=== PATIENT | female | born 1955 | race Caucasian/White ===

== ENCOUNTER → 2017-03-25 | Outpatient (CLI) | payer OTHER ==
--- NOTE | 2017-03-25 23:19 | MR ---
EXAMINATION TYPE: MR lumbar spine wo/w con DATE OF EXAM: 03/25/2017 COMPARISON: NONE HISTORY: 61-year-old female with left hip pain x8 months Technique: Multiplanar, multisequence images of the lumbar spine were obtained before and after admin istration of 20 mL intravenous MultiHance gadolinium contrast. FINDINGS: Vertebral body heights are preserved. Scattered Modic type II fatty endplate change particularly anteriorly from L2 through L5 levels and s ome Modic type III sclerotic changes anteriorly at L5-S1. Otherwise, no suspicious bone marrow replac ement. Conus medullaris is normal. There is facet arthropathy mid to lower lumbar spine with grade 1 retrolisthesis at L4-L5. The intervertebral discs are degenerated, desiccated, narrowed, and diffusely bulging. Severe narrowi ng at L5-S1 and moderate at L4-L5 with disc vacuum. At T12-L1, no spinal canal or foraminal stenosis. At L1-L2, no spinal canal or neuroforaminal stenosis. At L2-L3, minimal diffuse disc bulge without spinal canal or neuroforaminal stenosis. At L3-L4, mild diffuse disc bulge with small posterior annular fissure. No significant spinal canal o r neuroforaminal stenosis. L4-L5, there is facet arthropathy with ligamentum flavum thickening and diffuse disc bulge changes james spected to contact and possibly impinges the traversing left L5 nerve root. There is mild bilateral n euroforaminal stenosis without significant spinal canal stenosis. At L5-S1, facet arthropathy with a bulging disc. Disc material closely approaches and may contact the traversing S1 nerve roots. No significant spinal canal or neuroforaminal stenosis. No abnormal enhancement within the spinal canal. Ectasia of the infrarenal abdominal aorta measuring up to 2.6 cm. No prevertebral or paravertebral so ft tissue abnormality seen. IMPRESSION: 1. Degenerative disc disease, most advanced at L5-S1 and then at L4-L5. Additional facet arthropathy and ligamentum flavum thickening in the lower lumbar spine. 2. Trace degenerative grade 1 retrolisthesis at L4-L5. 3. At L4-L5, the traversing left L5 nerve root may be impinged by the degenerative changes and bulgin g disc. 4. Disc material closely approaches and may contact the traversing S1 nerve roots at L5-S1.
== END | disposition home or self-care (01) ==
LOC: RADMRIMAIN 19:21
PROVIDERS: ATTEND Family Medicine
DX: M43.16 Spondylolisthesis, lumbar region (principal); M51.16 Intervertebral disc disorders with radiculopathy, lumbar region; M51.17 Intervertebral disc disorders with radiculopathy, lumbosacral region; M24.28 Disorder of ligament, vertebrae; M46.86 Other specified inflammatory spondylopathies, lumbar region
CPT/HCPCS: 72158; A9577

== ENCOUNTER → 2017-04-16 | Outpatient (CLI) | payer OTHER ==
--- NOTE | 2017-04-16 13:11 | US ---
EXAMINATION TYPE: US duplex aorta DATE OF EXAM: 04/16/2017 COMPARISON: MRI lumbar spine March 25, 20172016 CLINICAL HISTORY: I77.811 Abdominal Aortic Ectasia' 2.6cm infrarenal aortic ectasia noted on MRI; Smo ker since teenager EXAM MEASUREMENTS: Abdominal Aorta: Proximal: 2.8cm A/P Mid: 2.3cm A/P Distal: 2.6cm Transverse Bifurcation: 1.4cm A/P Right JOSE G, 1.1cm A/P Left JOSE G Intimal thickening is noted especially at distal aorta and into JOSE G. Prominence of aorta is confirmed but no greater than 3 cm aneurysmal dilatation is seen IMPRESSION: No greater than 3 cm aneurysmal change to the abdominal aorta.
== END | disposition home or self-care (01) ==
LOC: RADUSWWP 09:55
PROVIDERS: ATTEND Family Medicine
DX: I77.811 Abdominal aortic ectasia (principal)
CPT/HCPCS: 93979

== ENCOUNTER → 2017-04-22 | Outpatient (CLI) | payer OTHER ==
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
--- NOTE | 2017-04-23 14:25 | MM ---
Reason for exam: screening (asymptomatic). Last mammogram was performed 1 year and 3 months ago. History: Patient is postmenopausal, has history of endometrial cancer at age 37, and is nulliparous. Benign stereotactic core biopsy of the right breast, May 07, 2001. Core biopsy of the right breast. Physical Findings: A clinical breast exam by your physician is recommended on an annual basis and results should be correlated with mammographic findings. MG Screening Mammo w CAD Bilateral CC and MLO view(s) were taken. Prior study comparison: January 16, 2016, bilateral MG screening mammo w CAD. December 27, 2014, bilateral MG screening mammo w CAD. There are scattered fibroglandular densities. Stable benign calcifications. There is no discrete abnormality. No significant changes when compared with prior studies. ASSESSMENT: Benign, BI-RAD 2 RECOMMENDATION: Routine screening mammogram of both breasts in 1 year.
== END ==
LOC: WWCWWP 14:52
PROVIDERS: ATTEND Obstetrics & Gynecology
DX: Z12.31 Encounter for screening mammogram for malignant neoplasm of breast (principal)

== ENCOUNTER → 2017-06-03 | Outpatient (CLI) | payer OTHER ==
--- NOTE | 2017-06-04 13:36 | CT ---
EXAMINATION TYPE: CT chest wo con DATE OF EXAM: 06/03/2017 COMPARISON: Outside CT 05/13/2017 HISTORY: Abnormal CT at [facility] per patient. Pulmonary nodule at base of lung. CT DLP: 732.00 mGycm. Automated Exposure Control for Dose Reduction was Utilized. TECHNIQUE: CT scan of the thorax is performed without IV contrast. FINDINGS: LUNGS: The lungs are remarkable for a subpleural nodule and axial image 20 measuring approximately 5 mm immediately adjacent 2 mm nodule. The previously described nodule in the right middle lobe is not seen definitively. There is no pleural effusion. MEDIASTINUM: Lack of IV contrast is noted to limit evaluation for mediastinal and especially hilar ad enopathy. There are no definitive greater than 1 cm hilar or mediastinal lymph nodes. No cardiomega ly or significant pericardial effusion is seen, minimal pericardial fluid noted. OTHER: No additional significant abnormality is seen. Patient is post cholecystectomy. IMPRESSION: Nonspecific subcentimeter pulmonary nodule, repeat CT to assess for stability in 6-12 mon ths.
== END | disposition home or self-care (01) ==
LOC: RADCTMAIN 18:37
PROVIDERS: ATTEND Family Medicine
DX: R91.1 Solitary pulmonary nodule (principal)
CPT/HCPCS: 71250

== ENCOUNTER → 2018-05-26 | Outpatient (CLI) | payer OTHER ==
[2018-05-26 13:51] VITALS: BP 115/53; PULSE 89; TEMP 98.3; BMI 33.0
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
--- NOTE | 2018-05-28 09:19 | MM ---
Reason for exam: screening (asymptomatic). Last mammogram was performed 1 year and 1 month ago. History: Patient is postmenopausal, has history of endometrial cancer at age 37, and is nulliparous. Benign stereotactic core biopsy of the right breast, May 07, 2001. Core biopsy of the right breast. Physical Findings: A clinical breast exam by your physician is recommended on an annual basis and results should be correlated with mammographic findings. MG Screening Mammo w CAD Bilateral CC and MLO view(s) were taken. Prior study comparison: April 22, 2017, bilateral MG screening mammo w CAD. January 16, 2016, bilateral MG screening mammo w CAD. There is chronic nodularity in the right breast. No significant changes when compared with prior studies. ASSESSMENT: Benign, BI-RAD 2 RECOMMENDATION: Routine screening mammogram of both breasts in 1 year.
== END | disposition home or self-care (01) ==
LOC: WWCWWP 13:12
PROVIDERS: ATTEND Obstetrics & Gynecology
DX: Z12.31 Encounter for screening mammogram for malignant neoplasm of breast (principal)
CPT/HCPCS: 77067

== ENCOUNTER → 2018-06-16 | Outpatient (CLI) | payer OTHER ==
--- NOTE | 2018-06-17 16:25 | BD ---
EXAMINATION TYPE: Axial Bone Density DATE OF EXAM: 06/16/2018 COMPARISON: NONE CLINICAL HISTORY: Height: 65.5 IN Weight: 205 LBS FRAX RISK QUESTIONS: Secondary Osteoporosis: 3. Menopause before 45: YES AGE 37 Current Tobacco Use: YES RISK FACTORS HISTORY OF: Active: NO Diet low in dairy products/other sources of calcium: YES Postmenopausal woman: AGE 37 MEDICATIONS: Additional Medications: VIT D, KEFLEX, ASPIRIN, BLOOD PRESSURE MEDS, WATER PILL, CHOLESTEROL MED, NOR CO, Additional History: CERVICAL CANCER WITH RADIATION AGE 37 EXAM MEASUREMENTS: Bone mineral densitometry was performed using the [employer] System. Bone mineral density as measured about the Lumbar spine is: ----- L1-L4(G/cm2): 0.967 T Score Values are as follows: ----- L2: -2.0 ----- L3: -1.7 ----- L4: -0.6 ----- L1-L4: -1.8 Bone mineral density BASELINE Bone mineral density about the R hip (g/cm2): 0.664 Bone mineral density about the L hip (g/cm2): 0.652 T Score values are as follows: -----R Neck: -2.7 -----L Neck: -2.8 -----R Total: -2.8 -----L Total: -2.4 Bone mineral density BASELINE IMPRESSION: Osteoporosis (T Score less than -2.5). There is increased fracture risk and therapy is usually indicated based on age. Re-Screen 1-2 years. NOTE: T-SCORE=SD OF THE YOUNG ADULT MEAN.
== END ==
LOC: RADBDWWP 16:13
PROVIDERS: ATTEND Obstetrics & Gynecology
DX: M81.0 Age-related osteoporosis without current pathological fracture (principal)
CPT/HCPCS: 77080

== ENCOUNTER → 2019-06-09 | Outpatient (CLI) | payer OTHER ==
[2019-06-09 10:39] VITALS: BP 95/60; PULSE 114; RESP 18; TEMP 98.7; BMI 35.2
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
--- NOTE | 2019-06-10 13:45 | MM ---
Reason for exam: screening (asymptomatic). Last mammogram was performed 1 year ago. History: Patient is postmenopausal, has history of endometrial cancer at age 37, and is nulliparous. Benign stereotactic core biopsy of the right breast, May 07, 2001. Core biopsy of the right breast. Physical Findings: A clinical breast exam by your physician is recommended on an annual basis and results should be correlated with mammographic findings. MG Screening Mammo w CAD Bilateral CC and MLO view(s) were taken. Prior study comparison: May 26, 2018, bilateral MG screening mammo w CAD. April 22, 2017, bilateral MG screening mammo w CAD. There are scattered fibroglandular densities. Stable benign calcifications. There is no discrete abnormality. No significant changes when compared with prior studies. ASSESSMENT: Benign, BI-RAD 2 RECOMMENDATION: Routine screening mammogram of both breasts in 1 year.
== END | disposition home or self-care (01) ==
LOC: WWCWWP 10:18
PROVIDERS: ATTEND Obstetrics & Gynecology
DX: Z12.31 Encounter for screening mammogram for malignant neoplasm of breast (principal)
CPT/HCPCS: 77067

== ENCOUNTER → 2020-08-22 | Outpatient (CLI) | payer OTHER ==
[2020-08-22 10:47] VITALS: BP 114/77; PULSE 79; RESP 20; TEMP 98
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
--- NOTE | 2020-08-23 09:23 | MM ---
Reason for exam: screening (asymptomatic). Last mammogram was performed 1 year and 2 months ago. History: Patient is postmenopausal, has history of endometrial cancer at age 37, and is nulliparous. Benign stereotactic core biopsy of the right breast, May 07, 2001. Core biopsy of the right breast. Physical Findings: A clinical breast exam by your physician is recommended on an annual basis and results should be correlated with mammographic findings. MG Screening Mammo w CAD Bilateral CC and MLO view(s) were taken. Prior study comparison: June 09, 2019, bilateral MG screening mammo w CAD. May 26, 2018, bilateral MG screening mammo w CAD. There are scattered fibroglandular densities. Stable benign calcifications. There is no discrete abnormality. No significant changes when compared with prior studies. ASSESSMENT: Benign, BI-RAD 2 RECOMMENDATION: Routine screening mammogram of both breasts in 1 year.
== END | disposition home or self-care (01) ==
LOC: WWCWWP 10:32
PROVIDERS: ATTEND Obstetrics & Gynecology
DX: Z12.31 Encounter for screening mammogram for malignant neoplasm of breast (principal)
CPT/HCPCS: 77067

== ENCOUNTER → 2021-10-23 | Outpatient (CLI) | payer OTHER ==
[2021-10-23 10:53] VITALS: BP 103/69; PULSE 82; RESP 18; TEMP 98.8
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
--- NOTE | 2021-10-24 14:15 | MM ---
Reason for exam: screening (asymptomatic). Last mammogram was performed 1 year and 2 months ago. History: Patient is postmenopausal, has history of endometrial cancer at age 37, and is nulliparous. Benign stereotactic core biopsy of the right breast, May 07, 2001. Core biopsy of the right breast. Physical Findings: A clinical breast exam by your physician is recommended on an annual basis and results should be correlated with mammographic findings. MG Screening Mammo w CAD Bilateral CC and MLO view(s) were taken. Prior study comparison: August 22, 2020, bilateral MG screening mammo w CAD. June 09, 2019, bilateral MG screening mammo w CAD. There are scattered fibroglandular densities. There are benign appearing round calcifications in the right breast. Previous mammotome biopsy in the right breast. There is chronic nodularity in the right breast and left axilla. ASSESSMENT: Benign, BI-RAD 2 RECOMMENDATION: Routine screening mammogram of both breasts in 1 year.
== END ==
LOC: WWCWWP 10:27
PROVIDERS: ATTEND Obstetrics & Gynecology
DX: Z12.31 Encounter for screening mammogram for malignant neoplasm of breast (principal); N36.41 Hypermobility of urethra; E78.5 Hyperlipidemia, unspecified; F32.A Depression, unspecified; Z87.310 Personal history of (healed) osteoporosis fracture; Z79.899 Other long term (current) drug therapy; Z86.19 Personal history of other infectious and parasitic diseases; Z87.891 Personal history of nicotine dependence; Z88.1 Allergy status to other antibiotic agents; Z88.2 Allergy status to sulfonamides; Z88.8 Allergy status to other drugs, medicaments and biological substances
CPT/HCPCS: 77067

== ENCOUNTER → 2021-11-22 | Outpatient (CLI) | payer OTHER ==
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
== END | disposition home or self-care (01) ==
LOC: RADBDWWP 12:34
PROVIDERS: ATTEND Obstetrics & Gynecology
DX: M85.88 Other specified disorders of bone density and structure, other site (principal); Z78.0 Asymptomatic menopausal state
CPT/HCPCS: 77080

== ENCOUNTER 2021-12-10 21:12 | Emergency (ER) | payer OTHER ==
[2021-12-11] MEDS ORDERED: ACETAMINOPHEN TAB 500 MG TAB PO STA (01:19)
[2021-12-11] MEDS ORDERED: IBUPROFEN 600 MG TAB PO STA (01:19)
[2021-12-11] MEDS ORDERED: SODIUM CHLORIDE 0.9% 1,000 ML IV STA (01:19)
[2021-12-11] MEDS ORDERED: diphenhydrAMINE 50 MG/ML 1 ML VIAL IVP STA (01:46)
[2021-12-11] MEDS ORDERED: hydrOXYzine HCL 25 MG TAB PO STA (01:46)
[2021-12-11] MEDS ORDERED: FAMOTIDINE 20 MG/2 ML VIAL IV STA (01:46)
[2021-12-11] MEDS ORDERED: methylPREDNISolone SOD SUCCI 125 MG/2 ML VIAL IV STA (01:46)
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
--- NOTE | 2021-12-11 02:47 | XR ---
EXAMINATION TYPE: XR pelvis AP view DATE OF EXAM: 12/11/2021 COMPARISON: NONE HISTORY: Postop fever TECHNIQUE: Single view FINDINGS: The pelvic ring is intact. There is skin morena over the left and right inguinal region. T here is right iliac artery stent. The proximal femurs are intact. No fracture seen. There is apparent lumbar spine surgery with laminectomy at L4-5. IMPRESSION: No acute abnormality of the pelvis.
--- NOTE | 2021-12-11 02:48 | XR ---
EXAMINATION TYPE: XR chest 1V DATE OF EXAM: 12/11/2021 COMPARISON: NONE HISTORY: Postop fever TECHNIQUE: Single view FINDINGS: There is no heart failure nor confluent pneumonic infiltrate. Costophrenic angles are clear . There are no hilar masses. Bony thorax is intact. IMPRESSION: No active cardiopulmonary disease.
[2021-12-11 03:50] LABS: Appearance,Urine Turbid (Clear); Bacteria,Urine Occasional /hpf; Bilirubin,Urine Negative (Negative); Blood,Urine Negative (Negative); Color,Urine Yellow; Glucose,Urine (UA) Negative (Negative); Ketones,Urine Trace (Negative); Leukocyte Esterase,Urine Negative (Negative); Mucus,Urine Many /hpf; Nitrite,Urine Negative (Negative); PH, Urine 5.5 (5.0-8.0); Protein,Urine Trace (Negative); RBC,Urine 1 /hpf (0-5); Specific Gravity,Urine 1.029 (1.001-1.035); Squamous Epithelial Cell,Urine 6 /hpf (0-4); WBC,Urine 2 /hpf (0-5)
[2021-12-11 04:56] LABS: Basophils % (A) 0 %; Eosinophils # (A) 0.1 k/uL (0-0.7); Eosinophils % (A) 1 %; HCT 38.9 % (34.0-46.0); HGB 12.7 gm/dL (11.4-16.0); Lymphocytes % (A) 23 %; MCH 31.8 pg (25.0-35.0); MCHC 32.5 g/dL (31.0-37.0); MCV 97.8 fL (80.0-100.0); Mean Platelet Volume 8.7; Monocytes # (A) 0.5 k/uL (0-1.0); Monocytes % (A) 6 %; Neutrophils # (A) 5.9 k/uL (1.3-7.7); Neutrophils % (A) 67 %; Platelet Count 338 k/uL (150-450); RBC 3.98 m/uL (3.80-5.40); RDW 14.6 % (11.5-15.5); WBC 8.7 k/uL (3.8-10.6)
[2021-12-11 05:04] VITALS: RESP 18
[2021-12-11 05:18] LABS: Albumin 3.4 g/dL (3.5-5.0); C Reactive Protein 2.8 mg/dL (<1.0); Calcium 8.9 mg/dL (8.4-10.2); Magnesium 2.2 mg/dL (1.6-2.3); Phosphorus 3.9 mg/dL (2.5-4.5); Potassium 4.3 mmol/L (3.5-5.1); Total Bilirubin 0.7 mg/dL (0.2-1.3); Total Protein 6.4 g/dL (6.3-8.2)
[2021-12-11 05:22] LABS: INR 0.9 (<1.2); Prothrombin Time 10.1 sec (9.0-12.0)
[2021-12-11] MEDS ORDERED: CLINDAMYCIN 150 MG CAP PO STA (05:47)
[2021-12-11] MEDS ORDERED: cefTRIAXone IN SWFI 1,000 MG/10 ML SYRINGE IVP STA (05:47)
[2021-12-11 06:10] VITALS: BP 144/87; PULSE 87; TEMP 98.9
== END 2021-12-11 06:16 | disposition home or self-care (01) ==
LOC: EC 21:12
DX: L50.8 Other urticaria (principal); R50.82 Postprocedural fever; E78.5 Hyperlipidemia, unspecified; M81.0 Age-related osteoporosis without current pathological fracture; F32.A Depression, unspecified; Z90.49 Acquired absence of other specified parts of digestive tract; Z79.82 Long term (current) use of aspirin; Z88.1 Allergy status to other antibiotic agents; Z88.2 Allergy status to sulfonamides; Z85.41 Personal history of malignant neoplasm of cervix uteri; Z87.891 Personal history of nicotine dependence
CPT/HCPCS: 99283; 96374; 96375 ×3; 96361; 36415; 93005; 80053; 83605; 83735; 84100; 84484; 85025; 85610; 85730; 86140; 81001; 87040; 72170; 71045; J1200; J2930; J0696

== ENCOUNTER 2022-03-23 11:02 | Inpatient (IN) | payer OTHER ==
[2022-03-23] MEDS ORDERED: SODIUM CHLORIDE 0.9% 1,000 ML IV STA (11:35)
[2022-03-23] MEDS ORDERED: fentaNYL (PF) 50 MCG/ML 2 ML AMP IVP STA (11:35)
[2022-03-23] MEDS ORDERED: ONDANSETRON 4 MG/2 ML VIAL IVP STA (11:36)
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
[2022-03-23 11:43] LABS: Glucose,Whole Blood 196 mg/dL (70-110)
[2022-03-23] MEDS ORDERED: ASPIRIN 81 MG PO STA (11:51)
[2022-03-23] MEDS ORDERED: HEPARIN SODIUM 1,000 UN/ML (10ML VL) IV ONE (11:51)
[2022-03-23] MEDS ORDERED: HEPARIN SODIUM 1,000 UN/ML (10ML VL) IV PRN (11:51)
[2022-03-23 12:01] LABS: Albumin 3.5 g/dL (3.5-5.0); Calcium 8.2 mg/dL (8.4-10.2); Magnesium 2.2 mg/dL (1.6-2.3); Total Bilirubin 1.4 mg/dL (0.2-1.3); Total Protein 6.8 g/dL (6.3-8.2)
[2022-03-23 12:02] LABS: Basophils # (A) 0.1 k/uL (0-0.2); Basophils % (A) 1 %; Eosinophils % (A) 0 %; HCT 43.9 % (34.0-46.0); HGB 13.8 gm/dL (11.4-16.0); Hypochromasia Moderate; Lymphocytes # (A) 0.8 k/uL (1.0-4.8); Lymphocytes % (A) 4 %; MCH 30.5 pg (25.0-35.0); MCHC 31.3 g/dL (31.0-37.0); MCV 97.3 fL (80.0-100.0); Mean Platelet Volume 10.1; Monocytes % (A) 5 %; Neutrophils # (A) 18.6 k/uL (1.3-7.7); Neutrophils % (A) 89 %; Platelet Count 223 k/uL (150-450); RBC 4.51 m/uL (3.80-5.40); WBC 20.9 k/uL (3.8-10.6)
[2022-03-23 12:06] LABS: INR 1.2 (<1.2); Partial Thromboplastin Time 26.5 sec (22.0-30.0); Prothrombin Time 12.4 sec (9.0-12.0)
[2022-03-23 12:16] LABS: Ionized Calcium 4.1 mg/dL (4.5-5.3)
[2022-03-23] MEDS: HEPARIN SOD,PORK IN 0.45% NACL 25,000 UNIT in 0.45% NACL 1 250ML.BAG IV SCH ×2 (12:29→17:52)
[2022-03-23] MEDS ORDERED: VANCOMYCIN 1,500 MG in SODIUM CHLORIDE 0.9% 250 ML IVPB STA (12:44)
[2022-03-23] MEDS ORDERED: NALOXONE 0.4 MG/ML 1 ML VIAL IV PRN (12:45)
[2022-03-23] MEDS ORDERED: SODIUM CHLORIDE 0.9% 1,000 ML IV SCH (12:45)
[2022-03-23] MEDS ORDERED: VANCOMYCIN IV PER PHARMACY 1 EACH MISC MISCELLANE PRN (12:54)
--- NOTE | 2022-03-23 12:57 | CT ---
EXAMINATION TYPE: CT angio tho/abd W Run Off DATE OF EXAM: 03/23/2022 COMPARISON: 05/13/2017 HISTORY: Left leg discoloration. Recent stent surgery in November 2021. CT DLP: 3868.2 mGycm CONTRAST: CTA thoracic and abdominal aorta with 3-D reconstruction is performed and without and with IV Contras t, patient injected with 100ml mL of Isovue 370. Contrast CTA of the abdominal aorta with runoff of the lower extremity arterial system was performed from the lung bases through the ankles and feet. 3-D reconstruction imaging obtained at a separate wo rkstation. Thoracic aorta: Normal caliber. No dissection. No aneurysm. Heart and mediastinal structures are with in normal limits. Mild right basilar atelectasis. ABDOMINAL AORTA: 3.1 cm infrarenal abdominal aortic aneurysm with mural thrombus. Diminutive right re nal artery. Remaining branch vessels are within normal limits. Iliac vessels: There is an occluded left common iliac artery with a patent right common iliac artery there is right external iliac artery stent in place which appears to be patent. The right internal il iac artery is patent. Femoral arteries/popliteal arteries: There is a femoral-femoral bypass graft which fails to opacify w ith contrast and therefore I suspect is occluded. A second femorofemoral bypass graft appears to be d etached. Right superficial femoral artery appears to be patent however visualization above and at the knee is limited by extensive clip streak artifact. Profunda femoris appears to be patent on the righ t. On the left there appears to be trickle flow through the left superficial femoral artery and poplitea l artery which appeared diminutive. No significant flow is seen distal to the left knee. Angiographic correlation is recommended. Below the knee arteries: No significant flow is seen distal to the left knee. Angiographic correlatio n is recommended. Trifurcation on the right appears to be patent as are the peroneal as well as anter ior and posterior tibial arteries. Limited runoff of the ankles and feet given timing of the contrast bolus. LIVER/GB-cholecystectomy clips are in place. PANCREAS- No significant abnormality is seen. SPLEEN- No significant abnormality is seen. ADRENALS- No significant abnormality is seen. KIDNEYS/BLADDER-there is edema and patchy enhancement of the right kidney which may reflect underlyin g pyelonephritis. Right renal artery is diminutive in size. Left kidney appears within normal limits. BOWEL- No Significant abnormality GENITAL ORGANS: No gross abnormality seen. LYMPH NODES- No greater than 1cm abdominal or pelvic lymph nodes are appreciated. OSSEOUS STRUCTURES- No significant abnormality is seen. OTHER- No significant abnormality is seen. IMPRESSION- 1. Femorofemoral bypass graft fails demonstrate evidence of contrast opacification and therefore appe ars occluded. 2. Trickle flow through the left SFA with nonvisualization of flow below the knee. Occlusion is suspe cted. Vascular consult recommended. 3. Infrarenal abdominal aortic aneurysm. 4. Right external iliac stent which appears to be patent. Occlusion left common iliac artery. 5. Edema of the right kidney with striated enhancement pattern is suspicious for pyelonephritis. Dimi nutive right renal artery.
--- NOTE | 2022-03-23 13:04 | XR ---
EXAMINATION TYPE: XR chest 1V portable DATE OF EXAM: 03/23/2022 HISTORY: Shortness of breath. COMPARISON: 12/11/2021 TECHNIQUE: Single view of the chest is submitted. FINDINGS: Demonstrated are scattered senescent parenchymal change. There is no evidence for focal infiltrate. The heart is stable. Mild pulmonary venous engorgement without overt failure. Hilar and mediastinal structures are within normal limits. Degenerative changes are seen of the dorsal spine. IMPRESSION: 1. Chronic changes without evidence for acute pulmonary disease.
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
[2022-03-23] MEDS ORDERED: IV FLUID CONTINUATION 200 ML IV ONE (13:56)
[2022-03-23] MEDS ORDERED: fentaNYL (PF) 50 MCG/ML 2 ML AMP ONE (14:09)
[2022-03-23] MEDS ORDERED: LIDOCAINE 2% INJ 20 MG/ML (2 ML VIAL) ONE (14:09)
[2022-03-23] MEDS ORDERED: GLYCOPYRROLATE 0.2 MG/ML 2 ML VIAL ONE (14:09)
[2022-03-23] MEDS ORDERED: NEOSTIGMINE 1 MG/ML 10 ML VIAL ONE (14:09)
[2022-03-23] MEDS ORDERED: PROPOFOL 10 MG/ML 20 ML VIAL IV ONE (14:09)
[2022-03-23] MEDS ORDERED: HEPARIN SODIUM,PORCINE 10,000 UNIT/ML 1 ML VIAL ONE (14:09)
[2022-03-23] MEDS ORDERED: PHENYLEPHRINE-0.9% NACL SYG 1,000 MCG/10 ML SYRINGE ONE (14:09)
[2022-03-23] MEDS ORDERED: MIDAZOLAM 2 MG/2 ML VIAL ONE (14:09)
[2022-03-23] MEDS ORDERED: ROCURONIUM 10 MG/ML (5 ML VIAL) IV ONE (14:09)
--- NOTE | 2022-03-23 15:10 | P.EN ---
I came to see the patient and she was still in surgery We will follow up
[2022-03-23 15:31] LABS: ABG Base Excess -10.1 mmol/L; ABG HCO3 17 mmol/L (21-25); ABG Oxygen Saturation 97.9 % (94-97); ABG PCO2 41 mmHg (35-45); ABG PH 7.23 (7.35-7.45); ABG PO2 123 mmHg (83-108); Allen Test Performed? Yes
[2022-03-23] MEDS ORDERED: SODIUM CHLORIDE 0.9% 500 ML 500 ML with HEPARIN SODIUM,PORCINE 5,000 UNIT IV ONE ×2 (15:43)
--- NOTE | 2022-03-23 17:12 | P.OP ---
Date of Procedure: 03/23/22 Preoperative Diagnosis: Thrombosed femoral to femoral bypass graft with resulting left lower extremity ischemia. Postoperative Diagnosis: Same plus graft infection. Procedure(s) Performed: #1: Exploration of left groin. #2: Thrombectomy of femoral-femoral bypass graft. #3: Culture of wound. Implants: None. Anesthesia: ELLE Surgeon: Ramiro Allison Estimated Blood Loss (ml): 100 Pathology: other (Culture of wound and thrombus) Condition: stable Disposition: ICU Indications for Procedure: Patient is a 66-year-old female who has a history of peripheral vascular disease who had undergone a femoral-femoral bypass graft at an outside institution. She presented earlier today with thrombosis and resulting ischemia of the left lower extremity. Physical examination revealed a femoral pulse on the right. All other pulses are absent bilaterally. The left foot and lower leg was mottled. CTA had been performed which confirmed thrombosis of the bypass graft and patient is offered thrombectomy. Operative Findings: Infected femoral to femoral bypass graft. Description of Procedure: Patient brought the upper and placed in supine position and administered general endotracheal anesthesia delivered by the department of anesthesiology. Patient's left lower extremity lower abdominal as well as the right thigh areas were sterilely prepped and draped in the usual manner. Sanchez catheter had been placed to gravity drainage and the patient received intravenously administered antibiotics in the prophylactic perioperative manner. The previous left groin wound was incised and immediately upon entering this skin bloody/turbid fluid was encountered and eventually purulence was noted. This was cultured. The incision was deepened through the subcu change tissues. The femoral to femoral bypass graft was identified and was noted to be absent of pulse. Essentially no graft inclusion was noted by the subcutaneous tissues. The exposed portion of the graft was encircled Vesseloops both proximally and distally. Transverse graftotomy was made and this was eventually extended to a complete transection of the bypass graft. A 5-[place]oz[place] Sanchez catheter was passed multiple times and eventually all thrombus within the graft was removed with excellent pulsatile flow noted. The Deborah was passed down the left femoral artery with good backbleeding identified. The graft was reapproximated with 5-0 Prolene suture placed in running fashion. Just prior to completion of the anastomotic line the graft was flushed and no thrombus was retrieved and was also backbled again with no thrombus being r etrieved. The anastomotic line was completed and flow was restored through the graft into the left femoral artery. The wound was copiously irrigated. Deep tissues were closed in one layer over the bypass graft. The wound was then packed with iodoform gauze and skin edges were loosely reapproximated with 3-0 nylon suture. Prevena negative pressure system was applied. Patient tolerated procedure well and was transferred to the recovery assessment and stable condition I discussed the situation with the patient's original operative surgeon[place] [facility] [place] appraised of the situation and was willing to accept the patient in transfer for continuation of a higher level of care and can be offered at this institution.
[2022-03-23] MEDS ORDERED: SODIUM CHLORIDE 0.9% 1,000 ML IV ONE ×2 (17:28)
[2022-03-23] MEDS: LACTATED RINGERS 1,000 ML IV SCH (17:47)
[2022-03-23] MEDS: HYDROmorphone 0.5 MG/0.5 ML SYRINGE IVP PRN ×2 (18:50→22:29)
[2022-03-23] MEDS: METOPROLOL TARTRATE 25 MG TAB PO SCH (22:58)
[2022-03-23] MEDS: OXYBUTYNIN CHLORIDE 5 MG TAB PO SCH (22:58)
[2022-03-23] MEDS: ATORVASTATIN 40 MG TAB PO SCH (22:58)
[2022-03-24 01:02] LABS: INR 1.2 (<1.2); Prothrombin Time 12.8 sec (9.0-12.0)
[2022-03-24 01:22] LABS: Partial Thromboplastin Time >200.0 sec (22.0-30.0)
[2022-03-24] MEDS: HYDROmorphone 0.5 MG/0.5 ML SYRINGE IVP PRN ×3 (01:46→21:05)
[2022-03-24] MEDS: LACTATED RINGERS 1,000 ML IV SCH ×6 (01:46→21:05)
[2022-03-24 04:58] LABS: Calcium 6.5 mg/dL (8.4-10.2); Potassium 5.1 mmol/L (3.5-5.1)
[2022-03-24 06:00] LABS: HCT 32.2 % (34.0-46.0); Hypochromasia Marked; MCH 30.6 pg (25.0-35.0); MCHC 31.3 g/dL (31.0-37.0); MCV 97.7 fL (80.0-100.0); Mean Platelet Volume 11.6; Platelet Count 140 k/uL (150-450); RBC 3.29 m/uL (3.80-5.40); RDW 13.9 % (11.5-15.5); WBC 12.9 k/uL (3.8-10.6)
[2022-03-24 06:04] LABS: HGB 10.1 gm/dL (11.4-16.0)
[2022-03-24 06:40] LABS: Band Neutrophils % 42 %; Lymphocytes # (M) 1.81 k/uL (1.0-4.8); Monocytes # (M) 0.52 k/uL (0-1.0); Neutrophils % (M) 40 %; Nucleated Red Blood Cells 0 /100 WBC (0-0); Total Cells Counted 200
[2022-03-24 06:43] LABS: Large Platelets Present
[2022-03-24] MEDS: OXYBUTYNIN CHLORIDE 5 MG TAB PO SCH ×2 (08:46→21:04)
[2022-03-24] MEDS: FAMOTIDINE 20 MG TAB PO SCH (08:47)
[2022-03-24] MEDS: METOPROLOL TARTRATE 25 MG TAB PO SCH (08:47)
[2022-03-24] MEDS: ASPIRIN 81 MG PO SCH (08:47)
[2022-03-24] MEDS: DULoxetine HCL 60 MG CAPSULE.DR PO SCH (08:47)
[2022-03-24] MEDS ORDERED: VANCOMYCIN 1,500 MG in SODIUM CHLORIDE 0.9% 250 ML IVPB ONE (09:00)
[2022-03-24] MEDS ORDERED: CALCIUM GLUCONATE IN NACL 1 GM in SALINE 1 100ML.BAG IVPB ONE (09:30)
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
[2022-03-24] MEDS: METOPROLOL TARTRATE 12.5 MG TAB PO SCH ×2 (13:53→21:05)
[2022-03-24] MEDS: HEPARIN SOD,PORK IN 0.45% NACL 25,000 UNIT in 0.45% NACL 1 250ML.BAG IV SCH ×2 (15:25→21:07)
[2022-03-24] MEDS: ATORVASTATIN 40 MG TAB PO SCH (21:04)
[2022-03-25 05:31] LABS: Vancomycin,Random 25.4 ug/mL
[2022-03-25] MEDS: LACTATED RINGERS 1,000 ML IV SCH ×2 (05:35→09:36)
--- NOTE | 2022-03-25 08:46 | P.PN ---
Subjective Progress Note Date: 03/25/22 Principal diagnosis: Thrombosed femoral to femoral bypass graft with left lower extremity ischemia This is 66-year-old female who presented to the emergency department with compla ints of left lower extremity pain. She has a history of peripheral vascular disease and had undergone a fem-fem bypass at [facility]. She is status post op day #2 for exploration of the left groin and thrombectomy of the femoral-femoral bypass graft. Today she seen and evaluated and remains in the ICU. She is complaining of abdominal pain. Left lower extremity pain has improved. She is able to move bilateral lower extremities. Her Prevena dressing is in place with good suction. Today's labs are currently pending. Blood cultures preliminary showing Klebsiella pneumoniae. She is currently on IV vancomycin and Zosyn. She remains on a heparin drip. She is awaiting insurance authorization for transfer to higher level of care needing plastic surgeon. Objective - Vital Signs Vital signs: Vital Signs Temp 99.2 F 03/25/22 04:00 Pulse 117 H 03/25/22 07:00 Resp 35 H 03/25/22 07:00 BP 104/76 03/25/22 07:00 Pulse Ox 100 03/25/22 06:00 FiO2 Intake & Output 03/24/22 03/25/22 03/25/22 18:59 06:59 18:59 Intake Total 2276.600 1966.548 150 Output Total 188 122 10 Balance 2088.600 1844.548 140 Weight 101.8 kg Intake: IV 1800 1800 150 Lactated Ringers 1,000 ml 1800 1800 150 @ 150 mls/hr IV .[id number] [facility] Rx#:[id number] Intake, IV Titration 476.600 66.548 Amount Calcium Gluconate in NaCl 100 1 gm In Saline 1 100ml. bag @ 100 mls/hr IVPB ONCE ONE Rx#:[id number] Heparin Sod,Pork in 0.45% 126.600 66.548 NaCl 25,000 unit In 0.45 % NaCl 1 250ml.bag @ 18 UNITS/KG/HR 16.166 mls/hr IV .[id number] [facility] Rx#: [id number] Vancomycin 1,500 mg In 250 Sodium Chloride 0.9% 250 ml @ 125 mls/hr IVPB ONCE ONE Rx#:[id number] Oral 100 Output: Urine 188 122 10 Other: Voiding Method Indwelling Catheter Indwelling Catheter ABP, PAP, CO, CI - Last Documented Arterial Blood Pressure 112/63 - Exam General appearance: The patient is alert, oriented, appears in no acute distress. HET: Head is normocephalic and atraumatic. Pupils are equal and reactive. Neck: Supple without lymphadenopathy. Trachea midline. No audible carotid bruit. Heart: S1 S2. Regular rate and rhythm. Lungs: Clear to auscultation bilaterally. Abdomen: Soft, tender to palpation, nondistended. Extremities: Left foot with some mottling, cool to the touch. Nonpalpable pulses. Left lower extremity with femoral, popliteal and DP Doppler signal. Patient is able to move her foot and toes on the left lower extremity. Neurological: Alert and oriented. - Labs CBC & Chem 7: 03/24/22 04:25 03/25/22 04:48 Labs: Abnormal Lab Results - Last 24 Hours (Table) 03/24/22 03/24/22 03/24/22 Range/Units 08:08 08:08 12:20 APTT 82.3 H (22.0-30.0) sec Creatinine (0.52-1.04) mg/dL Plasma Lactic Acid Girma 2.6 H* 3.1 H* (0.7-2.0) mmol/L 03/24/22 03/25/22 03/25/22 Range/Units 14:30 04:48 04:48 APTT 65.7 H 62.3 H (22.0-30.0) sec Creatinine 4.22 H (0.52-1.04) mg/dL Plasma Lactic Acid Girma (0.7-2.0) mmol/L Microbiology - Last 24 Hours (Table) 03/24/22 04:25 Blood Culture Gram Stain - Preliminary Blood Blood Culture - Preliminary Klebsiella pneumoniae 03/23/22 16:45 Gram Stain - Preliminary Groin Tissue Culture - Preliminary 03/23/22 16:45 Gram Stain - Preliminary Groin Wound Culture - Preliminary 03/23/22 15:00 Urine Culture - Preliminary Urine,Voided Gram Neg Bacilli 03/24/22 04:25 Blood Culture - Final Blood Assessment and Plan Assessment: 1. Postop day #2 exploration of left groin and thrombectomy of femoral to femoral bypass graft 2. Graft infection 3. Thrombosed femoral-femoral bypass graft resulting in left lower extremity ischemia 4. Abdominal pain 5. Acute kidney injury Plan: Patient is status post exploration and thrombectomy of left lower extremity femoral to femoral bypass graft. Continue heparin drip, recommend transfer to [facility] where previous vascular surgery had taken place. Dr. Salmon at [facility] in [place] was contacted by Dr. Melo transfer was accepted for further management of care as well as need for plastic surgeon. Continue antibiotics per recommendation from infectious disease. This was discussed with the patient and she is agreeable to transfer. According to nursing they have discussed this with the family and they as well are agreeable to transfer. Thank you for this consultation, we will continue to follow. The impression and plan of care has been dictated as directed. I performed a history and examination of this patient, discussed the same with the dictator. I agree with the dictator's note ,documented as a scribe. Any additional findings or plans will be noted.
[2022-03-25] MEDS ORDERED: PIPERACILLIN-TAZOBACTAM 3.375 GM in SODIUM CHLORIDE 0.9% 100 ML IVPB SCH ×3 (09:00)
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
[2022-03-25 09:12] LABS: Potassium 4.8 mmol/L (3.5-5.1); Total Protein 4.1 g/dL (6.3-8.2)
[2022-03-25] MEDS ORDERED: MIDODRINE 5 MG TAB PO ONE (09:15)
[2022-03-25] MEDS ORDERED: FUROSEMIDE 10 MG/ML 10 ML VIAL IV SCH (09:15)
[2022-03-25] MEDS: ASPIRIN 81 MG PO SCH (09:27)
[2022-03-25] MEDS: DULoxetine HCL 60 MG CAPSULE.DR PO SCH (09:27)
[2022-03-25 09:28] LABS: Calcium 6.1 mg/dL (8.4-10.2)
[2022-03-25] MEDS: FAMOTIDINE 20 MG TAB PO SCH (09:28)
[2022-03-25] MEDS: METOPROLOL TARTRATE 12.5 MG TAB PO SCH (09:28)
[2022-03-25] MEDS: OXYBUTYNIN CHLORIDE 5 MG TAB PO SCH (09:36)
[2022-03-25 09:52] LABS: ABG Base Excess -15.3 mmol/L; ABG HCO3 11 mmol/L (21-25); ABG Oxygen Saturation 89.6 % (94-97); ABG PCO2 20 mmHg (35-45); ABG PH 7.33 (7.35-7.45); ABG PO2 62 mmHg (83-108); ABG TCO2 11 mmol/L (19-24); Allen Test Performed? Yes
--- NOTE | 2022-03-25 10:00 | XR ---
EXAMINATION TYPE: XR chest 1V DATE OF EXAM: 03/25/2022 COMPARISON: 03/23/2022 HISTORY: Shortness of breath TECHNIQUE: Single frontal view of the chest is obtained. FINDINGS: Bilateral lower lobe infiltrate with small effusion. No overt failure. No pneumothorax. Ca lcific tendinosis of the left shoulder. IMPRESSION: Bilateral lower lobe infiltrate and small effusion.
[2022-03-25 10:37] LABS: HCT 26.3 % (34.0-46.0); Hypochromasia Slight; MCH 30.7 pg (25.0-35.0); MCHC 32.3 g/dL (31.0-37.0); Mean Platelet Volume 12.1; Platelet Count 150 k/uL (150-450); RBC 2.77 m/uL (3.80-5.40); RDW 14.3 % (11.5-15.5); WBC 10.1 k/uL (3.8-10.6)
--- NOTE | 2022-03-25 10:38 | US ---
EXAMINATION TYPE: US kidneys/renal and bladder DATE OF EXAM: 03/25/2022 COMPARISON: NONE CLINICAL HISTORY: [email or web address]. JESSIE EXAM MEASUREMENTS: Right Kidney: 12.0 x 6.5 x 5.3 cm Left Kidney: 11.8 x 5.2 x 4.1 cm Right Kidney: lower pole obscured by overlying bowel content Left Kidney: no evidence of hydronephrosis Bladder: Sanchez Catheter No hydronephrosis or nephrolithiasis as visualized. See above regarding limitations in exam. Bladder nondistended due to Sanchez catheter and images were therefore not obtained by the technologist. Cortic al medullary differentiation preserved. IMPRESSION: No hydronephrosis or nephrolithiasis.
[2022-03-25 10:46] VITALS: TEMP 99.4
[2022-03-25 10:46] LABS: HGB 8.5 gm/dL (11.4-16.0)
[2022-03-25 11:04] LABS: Band Neutrophils % 15 %; Lymphocytes # (M) 0.61 k/uL (1.0-4.8); Metamyelocytes # (M) 0.51 k/uL (0); Metamyelocytes % 5 %; Myelocytes % 1 %; Neutrophils % (M) 70 %; Nucleated Red Blood Cells 0 /100 WBC (0-0); Total Cells Counted 100; Toxic Vacuolation Present
[2022-03-25 11:17] LABS: Appearance,Urine Turbid (Clear); Bilirubin,Urine Negative (Negative); Blood,Urine Large (Negative); Color,Urine Yellow; Glucose,Urine (UA) Negative (Negative); Ketones,Urine Negative (Negative); Leukocyte Esterase,Urine Large (Negative); Mucus,Urine Rare /hpf; Nitrite,Urine Negative (Negative); PH, Urine 6.5 (5.0-8.0); Protein,Urine 3+ (Negative); RBC,Urine 150 /hpf (0-5); Specific Gravity,Urine 1.022 (1.001-1.035); Urobilinogen,Urine <2.0 mg/dL (<2.0); WBC,Urine >182 /hpf (0-5)
[2022-03-25 11:45] LABS: Glucose,Whole Blood 23 mg/dL (70-110)
[2022-03-25 11:45] LABS: Glucose,Whole Blood <20 mg/dL (70-110)
[2022-03-25 11:51] LABS: Glucose,Whole Blood 94 mg/dL (70-110)
[2022-03-25] MEDS: NOREPINEPHRINE 4 MG in SODIUM CHLORIDE 0.9% 250 ML IV SCH ×2 (11:53→16:15)
[2022-03-25] MEDS: DEXTROSE 50% SYRINGE 50 ML IVP STA ×2 (11:53→18:51)
[2022-03-25 12:21] LABS: Glucose,Whole Blood 65 mg/dL (70-110)
--- NOTE | 2022-03-25 12:29 | XR ---
EXAMINATION TYPE: XR chest 1V portable DATE OF EXAM: 03/25/2022 COMPARISON: 03/25/2022 HISTORY: Central line placement TECHNIQUE: Single frontal view of the chest is obtained. FINDINGS: Bilateral lower lobe infiltrate with small effusion. No overt failure. No pneumothorax. Ca lcific tendinosis of the left shoulder. Gastric bubble distended. Now is a left-sided central line wi th the tip overlying the right atrium. No sizable pneumothorax. Surgical clips right upper quadrant. IMPRESSION: 1. Central line with the tip overlying the right atrium and no sizable pneumothorax. 2. Bilateral lower lobe infiltrate and small effusion. 3. Marked distention of the gastric bubble.
--- NOTE | 2022-03-25 12:35 | XR ---
EXAMINATION TYPE: XR abdomen 1V DATE OF EXAM: 03/25/2022 COMPARISON: NONE HISTORY: Pain TECHNIQUE: One view abdominal series FINDINGS: The osseous structures are intact. The bowel gas pattern is nonspecific. Dilated small bowel loops a re seen. Vascular stent overlying the right iliac region and they're suggestive of a metallic density overlying the lumbar spine likely postsurgical. Surgical clips in the pelvis and arthropathy of the hips with diffuse osteopenia. A gastric bubble markedly distended and there is right basilar subsegme ntal infiltrate. IMPRESSION: 1. Marked distention of the gastric bubble and small bowel loops correlate for bowel obstruction. 2. Right lower lobe atelectasis or infiltrate.
[2022-03-25 13:11] LABS: Glucose,Whole Blood 174 mg/dL (70-110)
[2022-03-25] MEDS: DEXTROSE 50% SYRINGE 50 ML IVP ONE ×2 (13:36→18:24)
[2022-03-25] MEDS ORDERED: CALCIUM GLUCONATE IN NACL 2 GM in SALINE 1 100ML.BAG IVPB ONE (14:00)
[2022-03-25] MEDS ORDERED: SODIUM BICARB 8.4% 50 ML SYR (1 MEQ/ML) IV STA ×2 (14:11→16:53)
[2022-03-25] MEDS ORDERED: DEXTROSE 5% IN WATER 1,000 ML with SODIUM BICARB (1 MEQ/ML) 150 ML IV SCH (14:15)
[2022-03-25] MEDS: HEPARIN SOD,PORK IN 0.45% NACL 25,000 UNIT in 0.45% NACL 1 250ML.BAG IV SCH (14:16)
--- NOTE | 2022-03-25 14:16 | P.PN ---
Subjective Progress Note Date: 03/25/22 This is a 66-year-old female who presents to the emergency department, on March 23, complaining of lethargy, and left lower leg pain. Patient was not able to give a very good history down in the emergency department. The patient apparently was brought in for weakness, and inability to get off the toilet. She also left thigh pain. The patient recently had a femoral/femoral bypass done at [facility], in November of this year. She was evaluated by our vascular surgeon, and end up having an exploratory procedure in the left groin area, a thrombectomy of the femoral/femoral bypass, and wound cultures. The vascular surgeon thought the patient should be transferred to [facility], to see her vascular surgeon. Apparently, that may not occur before Friday. Currently, she is on room air. She's getting lactated Ringer's at 150 mL an hour, heparin weight based protocol, and vancomycin IV. White count 12.9, hemoglobin 10.1, hematocrit 32.2, platelet count 100,000. Sodium 135, potassium 5.1, chlorides 107, CO2 17, anion gap 11, BUN 45, and creatinine 3.07. Lactic acid was 4.7. Today it was 2.6. Ionized calcium is a bit low. She'll get an amp of calcium chloride or gluconate. Nephrology has been consulted. The CT angiogram of the lower abdomen and lower extremities, revealed failure of the femoral/femoral bypass graft to show any evidence of contrast opacification, wit h trickle flow through the SFA, and nonvisualization of flow below the knee. on 03/25/2022, I'm seeing the patient for a follow-up. the patient is quite lethargic yet arousable and awake. she was exploration of the left groin, thrombectomy of the femoral femoral bypass graft and cultures of the wound was also obtained. Note that the left lung was incised and immediately upon entering into the skin, and bloody turbid fluid was encountered and the fluid was essentially purulent. Cultures are positive for capsula in the blood. The patient remains on examination of Zosyn and vancomycin this morning. the patient as been quite hypotensive. the patient also developed an acute kidney injury and the patient's creatinine is up to 4.22 with a BUN of 65. The chest examination was showing pulmonary vessel congestion and increased pulmonary vessel markings secondary to fluid overload. the patient is currently on 6 L about 2 by nasal cannula. Meanwhile, the rest of the electrodes showing a component of metabolic acidosis. The serum bicarbonate is down to 13 in the patient's sodium level is at 132. The blood gases was done and showed a pH of 7.33 with a pCO2 of 20 and pO2 of 62 and this was done and FiO2 of 6 L nasal cannula. the white cell count of 10.1 with a hemoglobin of 8.5. the patient was already started on pressors and the patient is currently. The patient is awaiting transfer to [facility] in [place] for further evaluation by her original vascular surgeon underwent her fem-fem bypass surgery. Objective - Vital Signs Vital signs: Vital Signs Temp 99.2 F 03/25/22 04:00 Pulse 117 H 03/25/22 07:00 Resp 35 H 03/25/22 07:00 BP 104/76 03/25/22 07:00 Pulse Ox 100 03/25/22 06:00 FiO2 Intake & Output 03/24/22 03/25/22 03/25/22 18:59 06:59 18:59 Intake Total 2276.600 1966.548 150 Output Total 188 122 10 Balance 2088.600 1844.548 140 Weight 101.8 kg Intake: IV 1800 1800 150 Lactated Ringers 1,000 ml 1800 1800 150 @ 150 mls/hr IV .Q6H40M [facility] Rx#:[id number] Intake, IV Titration 476.600 66.548 Amount Calcium Gluconate in NaCl 100 1 gm In Saline 1 100ml. bag @ 100 mls/hr IVPB ONCE ONE Rx#:[id number] Heparin Sod,Pork in 0.45% 126.600 66.548 NaCl 25,000 unit In 0.45 % NaCl 1 250ml.bag @ 18 UNITS/KG/HR 16.166 mls/hr IV .[id number] [facility] Rx#: [id number] Vancomycin 1,500 mg In 250 Sodium Chloride 0.9% 250 ml @ 125 mls/hr IVPB ONCE ONE Rx#:[id number] Oral 100 Output: Urine 188 122 10 Other: Voiding Method Indwelling Catheter Indwelling Catheter ABP, PAP, CO, CI - Last Documented Arterial Blood Pressure 112/63 - Exam General appearance: The patient is awake, lethargic, at times confused, breathing is slightly labored and the patient is currently on 6 L of oxygen by nasal cannula My normally had HET: Head is normocephalic and atraumatic. Pupils are equal and reactive. Neck: Supple without lymphadenopathy. Trachea midline. No audible carotid bruit. Cardiac exam revealed the PMI to be normally situated and sized. The rhythm was regular and no extrasystoles were noted during several minutes of auscultation. The first and second heart sounds were normal and physiologic splitting of the second heart sound was noted. There were no murmurs, rubs, clicks, or gallops. Lungs: Clear to auscultation bilaterally. the patient has bilateral crackles in the mid lower lung ivory bilaterally. Abdomen: Soft, tender to palpation, nondistended. Extremities: Left foot with some mottling, cool to the touch. Nonpalpable pulses. Left lower extremity with femoral, popliteal and DP Doppler signal. Patient is able to move her foot and toes on the left lower extremity. Neurological: confused, lethargic, moving all 4 extremities without any limitation - Labs CBC & Chem 7: 03/25/22 10:00 03/25/22 04:48 Labs: Abnormal Lab Results - Last 24 Hours (Table) 03/24/22 03/24/22 03/25/22 Range/Units 12:20 14:30 04:48 APTT 65.7 H (22.0-30.0) sec Creatinine 4.22 H (0.52-1.04) mg/dL Plasma Lactic Acid Girma 3.1 H* (0.7-2.0) mmol/L 03/25/22 Range/Units 04:48 APTT 62.3 H (22.0-30.0) sec Creatinine (0.52-1.04) mg/dL Plasma Lactic Acid Girma (0.7-2.0) mmol/L Microbiology - Last 24 Hours (Table) 03/24/22 04:25 Blood Culture Gram Stain - Preliminary Blood Blood Culture - Preliminary Klebsiella pneumoniae 03/23/22 16:45 Gram Stain - Preliminary Groin Tissue Culture - Preliminary 03/23/22 16:45 Gram Stain - Preliminary Groin Wound Culture - Preliminary 03/23/22 15:00 Urine Culture - Preliminary Urine,Voided Gram Neg Bacilli 03/24/22 04:25 Blood Culture - Final Blood Assessment and Plan Plan: Postop day #2, S/P surgical exploration of left groin, thrombectomy of fem oral/femoral bypass graft, and wound culture.the patient has infected fem-fem graft along with wound infection Septic shock secondary to gram-negative bacteremia and the blood cultures positive for Klebsiella Hypotension secondary to above, currently pressor dependent Recent femoral/femoral bypass grafting, November 2021, at [facility]. acute kidney injury, with oligoria on the urine output is in order of 10-15 mL an hour and the patient has progressive worsening renal function Metabolic acidosis, non-anion gap type Severe peripheral vascular disease acute leukocytosis, improving Shock liver secondary to sepsis/hypotension acute lactic acidosis, improving Troponin leak secondary to above History of hyperlipidemia. Depression. Chronic back pain. Osteoporosis. History of HPV. History of cervical cancer, status post radiation therapy, 1992. Plan: continue fluid resuscitation. Switch this patient a bicarb infusion with D5 and total amount of 50 mEq of sodium bicarbonate the rate of 150 mL an hour Give the patient sodium bicarbonate 50 mEq IV push Continue with pressors to maintain a mean artery pressure above 65 Stop the vancomycin and continue with IV Zosyn. The patient's blood cultures positive for Klebsiella Continue IV heparin Keep the wound VAC in place Blood gas was noted and is consistent with metabolic acidosis nephrology consultation The patient will be given a dose of Lasix 80 mg IV push improved urine output Hold metoprolol regards to the blood pressure Conditions extremity. I will continue to follow and will make further recommen dations based on her progress. We'll also establish a triple lumen catheter. Time with Patient: Greater than 30
--- NOTE | 2022-03-25 14:17 | P.PCN ---
Date of Procedure: 03/25/22 Preoperative Diagnosis: septic shock Postoperative Diagnosis: septic shock Procedure(s) Performed: insertion of a triple-lumen catheter Anesthesia: local Surgeon: Lilly Moreno Pathology: none sent Condition: critical Disposition: ICU Operative Findings: Indication: Hemodynamic monitoring/Intravenous access. A time-out was completed verifying correct patient, procedure, site, positioning, and implant(s) or special equipment if applicable. The patient was placed in a dependent position appropriate for central line placement based on the vein to be cannulated. The patients left neck was prepped and draped in sterile fashion. 1% Lidocaine was used to anesthetize the surrounding skin area. A triple lumen 9F Cordis catheter was introduced into the internal jugular vein using Seldinger technique. The catheter was threaded smoothly over the guide wire and appropriate blood return was obtained. Each lumen of the catheter was evacuated of air and flushed with sterile saline. The catheter was then sutured in place to the skin and a sterile dressing applied. Perfusion to the extremity distal to the point of catheter insertion was checked and found to be adequate. The patient tolerated the procedure well and there were no complications.
[2022-03-25 18:02] LABS: Glucose,Whole Blood 20 mg/dL (70-110)
[2022-03-25 18:15] LABS: Glucose,Whole Blood <20 mg/dL (70-110)
[2022-03-25] MEDS ORDERED: DEXTROSE 5% IN WATER 100 ML with AMIODARONE 150 MG IV ONE (18:20)
[2022-03-25] MEDS ORDERED: AMIODARONE 360 MG in DEXTROSE 5% IN WATER 200 ML IV ONE ×2 (18:20)
[2022-03-25 18:26] LABS: Glucose,Whole Blood 32 mg/dL (70-110)
[2022-03-25] MEDS ORDERED: NOREPINEPHRINE 32 MG in SODIUM CHLORIDE 0.9% 218 ML IV SCH (18:45)
[2022-03-25 18:46] LABS: Glucose,Whole Blood 61 mg/dL (70-110)
[2022-03-25] MEDS ORDERED: DEXTROSE 50% SYRINGE 50 ML IVP ONE (18:50)
[2022-03-25 19:34] VITALS: BP 128/85; PULSE 103; RESP 34
[2022-03-25 19:34] LABS: Glucose,Whole Blood 142 mg/dL (70-110)
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
== END 2022-03-25 19:30 | disposition short-term general hospital (02) | DRG 252 ==
LOC: EC 11:02 → 2SICU 12:45
PROVIDERS: ADMIT Hospitalist; ATTEND Hospitalist
PROC: 04CL0ZZ Extirpation of Matter from Left Femoral Artery, Open Approach (ICD-10-PCS; principal; 2022-03-23 14:00)
PROC: 02H633Z Insertion of Infusion Device into Right Atrium, Percutaneous Approach (ICD-10-PCS; 2022-03-25)
PROC: 3E043XZ Introduction of Vasopressor into Central Vein, Percutaneous Approach (ICD-10-PCS; 2022-03-25)
PROC: 5A0935A Assistance with Respiratory Ventilation, Less than 24 Consecutive Hours, High Flow/Velocity Cannula (ICD-10-PCS; 2022-03-25)
DX: T82.7XXA Infection and inflammatory reaction due to other cardiac and vascular devices, implants and grafts, initial encounter (principal); A41.59 Other Gram-negative sepsis; K72.00 Acute and subacute hepatic failure without coma; N17.0 Acute kidney failure with tubular necrosis; R65.21 Severe sepsis with septic shock; I74.5 Embolism and thrombosis of iliac artery; E87.2 Acidosis; T82.868A Thrombosis due to vascular prosthetic devices, implants and grafts, initial encounter; I71.4 Abdominal aortic aneurysm, without rupture; I73.9 Peripheral vascular disease, unspecified; I48.91 Unspecified atrial fibrillation; Z20.822 Contact with and (suspected) exposure to COVID-19; E16.2 Hypoglycemia, unspecified; I10 Essential (primary) hypertension; E78.5 Hyperlipidemia, unspecified; N14.1 Nephropathy induced by other drugs, medicaments and biological substances; T50.8X5A Adverse effect of diagnostic agents, initial encounter; E87.70 Fluid overload, unspecified; E87.5 Hyperkalemia; F32.A Depression, unspecified; G89.29 Other chronic pain; M54.9 Dorsalgia, unspecified; M81.0 Age-related osteoporosis without current pathological fracture; R77.8 Other specified abnormalities of plasma proteins; R32 Unspecified urinary incontinence; E66.9 Obesity, unspecified; Z68.36 Body mass index [BMI] 36.0-36.9, adult; Z79.82 Long term (current) use of aspirin; Z79.83 Long term (current) use of bisphosphonates; Z79.899 Other long term (current) drug therapy; Z87.891 Personal history of nicotine dependence; Z86.19 Personal history of other infectious and parasitic diseases; Z90.49 Acquired absence of other specified parts of digestive tract; Z87.19 Personal history of other diseases of the digestive system; Z90.89 Acquired absence of other organs; Z85.41 Personal history of malignant neoplasm of cervix uteri; Z92.3 Personal history of irradiation; Z98.890 Other specified postprocedural states; Y83.2 Surgical operation with anastomosis, bypass or graft as the cause of abnormal reaction of the patient, or of later complication, without mention of misadventure at the time of the procedure; Y92.002 Bathroom of unspecified non-institutional (private) residence as the place of occurrence of the external cause; Z88.1 Allergy status to other antibiotic agents; Z88.0 Allergy status to penicillin; Z88.2 Allergy status to sulfonamides; Z88.8 Allergy status to other drugs, medicaments and biological substances; Z82.49 Family history of ischemic heart disease and other diseases of the circulatory system; Z83.3 Family history of diabetes mellitus; Z83.49 Family history of other endocrine, nutritional and metabolic diseases
CPT/HCPCS: 36415; 71045; 71275; 74018; 75635; 76770; 80048; 80053; 80202; 81001; 82330; 82805; 83605; 83735; 84484; 85025; 85610; 85730; 87040; 87070; 87075; 87077; 87086; 87186; 87205; 87635; 93005; 96361; 96374; 96375; 99291